=== PATIENT | male | born 1980 | race African-American/Black ===

== ENCOUNTER 2018-11-02 14:08 | Emergency (ER) | payer SELFPAY ==
[2018-11-02] MEDS ORDERED: IBUPROFEN 800 MG TABLET PO ONE (15:07)
--- NOTE | 2018-11-02 15:10 | ER Document Report ---
HPI - HPI Patient complains to provider of: Flu symptoms Time Seen by Provider: 11/02/18 14:47 Onset: Yesterday Onset/Duration: Gradual Quality of pain: Achy Pain Level: 4 Context: Patient presents complaining of sore throat, body aches chills fever of 103 at home. Patient does report recent exposure to influenza. Patient denies any vomiting or diarrhea. Associated Symptoms: Body/muscle aches, Nonproductive cough, Fever, Headache, Rhinnorhea, Sore throat. denies: Earache, Vomiting Exacerbated by: Denies Relieved by: Denies Similar symptoms previously: No Recently seen / treated by doctor: No - ROS ROS below otherwise negative: Yes Systems Reviewed and Negative: Yes All other systems reviewed and negative - CONSTITUTIONAL Constitutional: REPORTS: Fever, Chills - EENT EENT: REPORTS: Sore Throat, Nasal Drainage-Clear, Congestion - NEURO Neurology: REPORTS: Headache - RESPIRATORY Respiratory: REPORTS: Coughing - GASTROINTESTINAL Gastrointestinal: DENIES: Abdominal Pain, Nausea, Patient vomiting - DERM Skin Color: Normal Skin Problems: None Past Medical History - General Information source: Patient - Social History Smoking Status: Current Every Day Smoker Smoking Education Provided: Yes Frequency of alcohol use: Occasional Drug Abuse: None Occupation: food supervisor Lives with: Family Family History: Reviewed & Not Pertinent - Medical History Medical History: Negative Surgical Hx: Negative Vertical Provider Document - CONSTITUTIONAL Agree With Documented VS: Yes Exam Limitations: No Limitations General Appearance: WD/WN, No Apparent Distress - INFECTION CONTROL TRAVEL OUTSIDE OF THE [place] IN LAST 30 DAYS: No - HEENT HEENT: Atraumatic, Normocephalic, Pharyngeal Tenderness. negative: Pharyngeal Exudate, Pharyngeal Erythema, Tympanic Membrane Red, Tympanic Membrane Bulging Notes: Clear rhinorrhea - NECK Neck: Normal Inspection, Supple. negative: Lymphadenopathy-Left, Lymphadenopathy-Right - RESPIRATORY Respiratory: Breath Sounds Normal, No Respiratory Distress, Chest Non-Tender - CARDIOVASCULAR Cardiovascular: Regular Rate, Regular Rhythm, No Murmur - GI/ABDOMEN Gastrointestinal: Abdomen Soft, Abdomen Non-Tender, No Organomegaly, Normal Bowel Sounds - BACK Back: Normal Inspection - MUSCULOSKELETAL/EXTREMETIES Musculoskeletal/Extremeties: MAEW, FROM - NEURO Level of Consciousness: Awake, Alert, Appropriate Motor/Sensory: No Motor Deficit - DERM Integumentary: Warm, Dry, No Rash Course - Re-evaluation Re-evalutation: 11/02/18 15:07 Patient presents with flulike symptoms with positive recent exposure at home. Discussed efficacy and side effect profile of Tamiflu. Patient is requesting this prescription. Patient otherwise nontoxic in appearance and is needing a note for his employer. Good return precautions discussed. - Vital Signs Vital signs: Temp Pulse Resp BP Pulse Ox 99.7 F 94 16 151/90 H 97 11/02/18 14:12 11/02/18 14:12 11/02/18 14:12 11/02/18 14:12 11/02/18 14:12 Discharge - Discharge Clinical Impression: Exposure to influenza, Flu-like symptoms Condition: Stable Disposition: HOME, SELF-CARE Instructions: Acetaminophen, Use of Xocz-Sfm-Clfjfko Ibuprofen ([facility]), Influenza ([facility]) Additional Instructions: Return immediately for any new or worsening symptoms Followup with your primary care provider, call tomorrow to make a followup appointment Take Tylenol or Motrin pxdy-iiy-sntiabs as directed for fever and body ache relief. Prescriptions: Guaifenesin/Pseudoephedrne HCl [Mucinex D ER 1,200-120 mg Tab] 1 each PO Q12 PRN #12 tab.er.12h PRN Reason: Oseltamivir Phosphate [Tamiflu 75 mg Capsule] 75 mg PO BID #10 capsule Forms: Smoking Cessation Education, Return to Work Referrals: [facility] [Provider Group] - Follow up as needed
[2018-11-02 15:22] VITALS: BP 150/86
== END 2018-11-02 15:24 | disposition home or self-care (01) ==
LOC: ER 14:08
DX: J02.9 Acute pharyngitis, unspecified (principal); R50.9 Fever, unspecified; M79.10 Myalgia, unspecified site; R05 Cough; R51 Headache; J34.89 Other specified disorders of nose and nasal sinuses; F17.200 Nicotine dependence, unspecified, uncomplicated; Z20.828 Contact with and (suspected) exposure to other viral communicable diseases
CPT/HCPCS: 99283

== ENCOUNTER 2020-04-07 14:31 | Emergency (ER) | payer SELFPAY ==
--- NOTE | 2020-04-07 14:55 | ER Document Report ---
ED General - General Chief Complaint: Other Stated Complaint: POSSIBLE COVID EXPOSURE Notes: Patient is a 39-year-old -[place] male with no reported past medical history presents to the emergency department the chief complaint of being exposed to COVID-19 last week on . He states he got a call on Sunday the same that person tested positive for COVID-19 and that he should self quarantine for 14 days. He has been in quarantine since Sunday, 3 days now but is about 7 days from contact exposure. He states he is asymptomatic. He reports no sick contacts at home. Has been wearing a mask for the past few days and isolating. No recent travels. TRAVEL OUTSIDE OF THE [place] IN LAST 30 DAYS: No - Related Data Allergies/Adverse Reactions: No Known Allergies Allergy (Verified 11/02/18 14:09) Past Medical History - Social History Smoking Status: Current Some Day Smoker Frequency of alcohol use: None Drug Abuse: None Family History: Reviewed & Not Pertinent Patient has homicidal ideation: No Renal/ Medical History: Denies: Hx Peritoneal Dialysis Review of Systems - Review of Systems -: Yes All other systems reviewed and negative Physical Exam - Vital signs Vitals: Temp 98.9 F 04/07/20 14:31 - General General appearance: Appears well, Alert In distress: None - HEENT Head: Normocephalic Eyes: Normal Conjunctiva: Normal Mouth/Lips: Normal Neck: Supple - Respiratory Respiratory status: No respiratory distress - Extremities General upper extremity: No: Edema General lower extremity: No: Edema - Neurological Neuro grossly intact: Yes Cognition: Normal Orientation: AAOx4 Hank[place] Coma Scale Eye Opening: Spontaneous [place] Coma Scale Verbal: Oriented [place] Coma Scale Motor: Obeys Commands Fausto Coma Scale Total: 15 Speech: Normal - Psychological Associated symptoms: Normal affect, Normal mood - Skin Skin Moisture: Dry Skin Color: Other - No rash on exposed skin Course - Re-evaluation Re-evalutation: 04/07/20 14:52 Patient is in 7 days into his exposure, 3 days quarantined. As opposed to continuing quarantine he reported for testing. States that he has 2 jobs and needs to know before 14 days if he safe for work. COVID swab will be obtained. Patient will continue to self isolate and wear a mask and wash his hands. If results are negative he may return to normal activities assuming baseline precautions. Counseled him regarding the importance of outpatient follow-up and advised that he return here or any ER immediately with any new, persistent or worsening symptoms. He verbalized understood and agreed. - Vital Signs Vital signs: Temp Pulse Resp BP Pulse Ox 98.9 F 67 18 155/104 H 99 04/07/20 14:41 04/07/20 14:41 04/07/20 14:41 04/07/20 14:41 04/07/20 14:41 Discharge - Discharge Clinical Impression: COVID-19 virus test result unknown Condition: Stable Disposition: HOME, SELF-CARE Instructions: COVID-19 Guidance for Persons Under Investigation Additional Instructions: You were tested today for COVID-19. Please continue to take all preventative precautions. Please self isolate at home, wear a mask and wash her hands frequently. Please wait for results for return to normal activities or for further quarantine and instruction. Please follow-up with your regular doctor after results are obtained. Please return here or any ER immediately with any new, persistent or worsening symptoms.
[2020-04-07 15:02] VITALS: BP 134/86
== END 2020-04-07 15:15 | disposition home or self-care (01) ==
LOC: ER 14:31
DX: Z03.818 Encounter for observation for suspected exposure to other biological agents ruled out (principal); F17.200 Nicotine dependence, unspecified, uncomplicated
CPT/HCPCS: 99283; 87635; C9803